=== PATIENT | female | born 1940 | race Caucasian/White ===

== ENCOUNTER 2020-02-01 11:26 | Outpatient (RCR) | payer SELFPAY | END 2020-02-01 23:59 | disposition home or self-care (01) | LOC: ANHAUDIO 11:26 | PROVIDERS: PCP Internal Medicine; Visit Provider Internal Medicine | DX: Z46.1 Encounter for fitting and adjustment of hearing aid (principal) | CPT/HCPCS: 99199 ==

== ENCOUNTER 2020-08-09 09:27 | Outpatient (CLI) | payer MEDICARE, OTHER, SELFPAY ==
--- NOTE | ~2020-08-09 | MM_ITS ---
EXAMINATION: MM screening jesse BI w olayinka HISTORY: Screening mammogram TECHNIQUE: Craniocaudal and mediolateral oblique 3-D tomosynthesis images were obtained and synthetic 2-D images were generated. CAD analysis was submitted and interpreted. COMPARISON: 06/22/2019, 06/17/2018, 06/10/2017 bilateral digital screening mammogram examinations BREAST PARENCHYMAL COMPOSITION: There are scattered areas of fibroglandular density. FINDINGS: Clips are again noted in the mid to upper outer left breast. 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 There is no evidence of suspicious mass, calcification, or architectural distortion to suggest malig aura in either breast. There has been no suspicious interval change. IMPRESSION: 1. No mammographic evidence of malignancy. 2. Recommend routine screening mammography in one year. BI-RADS Category 2: Benign finding(s). Reviewed, dictated and finalized at location A. NESS SYSTEM CONSULTANT
== END 2020-08-09 09:28 | disposition home or self-care (01) ==
PROVIDERS: PCP Internal Medicine; Visit Provider Obstetrics & Gynecology
DX: Z12.31 Encounter for screening mammogram for malignant neoplasm of breast (principal)
CPT/HCPCS: 77063; 77067

== ENCOUNTER 2020-11-07 10:24 | Outpatient (RCR) | payer SELFPAY | END 2020-11-07 23:59 | disposition home or self-care (01) | LOC: ANHAUDIO 10:24 | PROVIDERS: PCP Internal Medicine; Referring Provider Internal Medicine; Visit Provider Internal Medicine | DX: Z46.1 Encounter for fitting and adjustment of hearing aid (principal) | CPT/HCPCS: 99199 ==

== ENCOUNTER 2021-09-02 09:19 | Outpatient (CLI) | payer MEDICARE, OTHER, SELFPAY ==
--- NOTE | ~2021-09-02 | MM_ITS ---
EXAMINATION: MM screening [facility] BI w olayinka HISTORY: Screening mammogram TECHNIQUE: Craniocaudal and mediolateral oblique 3-D tomosynthesis images were obtained and synthetic 2-D images were generated. CAD analysis was submitted and interpreted. COMPARISON: 08/09/2020 06/22/2019, 06/17/2018 BREAST PARENCHYMAL COMPOSITION: There are scattered areas of fibroglandular density. FINDINGS: There is no evidence of suspicious mass, calcification, or architectural distortion to sugg est malignancy in either breast. There has been no suspicious interval change. IMPRESSION: 1. No mammographic evidence of malignancy. 2. Recommend routine screening mammography while the patient remains in good health. BI-RADS Category 1: Negative Reviewed, dictated and finalized at location A. PHERE ADMINISTRATOR IMPRESSION: 1. No mammographic evidence of malignancy. 2. Recommend routine screening mammography while the patient remains in good he alth. BI-RADS Category 1: Negative
== END 2021-09-02 09:20 | disposition home or self-care (01) ==
LOC: ANHIMG 09:22
PROVIDERS: PCP Internal Medicine; Visit Provider Obstetrics & Gynecology
DX: Z12.31 Encounter for screening mammogram for malignant neoplasm of breast (principal)
CPT/HCPCS: 77063; 77067

== ENCOUNTER 2022-12-15 10:12 | Outpatient (CLI) | payer MEDICARE, OTHER, SELFPAY ==
--- NOTE | ~2022-12-15 | MM_ITS ---
EXAMINATION: MM screening jesse BI w olayinka HISTORY: Screening mammogram TECHNIQUE: Craniocaudal and mediolateral oblique 3-D tomosynthesis images were obtained and synthetic 2-D images were generated. CAD analysis was submitted and interpreted. COMPARISON: 09/02/2021, 08/09/2020, 06/22/2019 bilateral screening mammogram examinations BREAST PARENCHYMAL COMPOSITION: There are scattered areas of fibroglandular density. FINDINGS: Occasional bilateral benign calcifications, including benign appearing probable partially c alcified right mid medial anterior fibroadenoma. There is no evidence of suspicious mass, calcificati on, or architectural distortion to suggest malignancy in either breast. There has been no suspicious interval change. IMPRESSION: 1. No mammographic evidence of malignancy. 2. Recommend routine screening mammography in one year. BI-RADS Category 2: Benign finding(s). Reviewed, dictated and finalized at location A.
== END 2022-12-15 10:13 | disposition home or self-care (01) ==
PROVIDERS: PCP Internal Medicine; Visit Provider Obstetrics & Gynecology
DX: Z12.31 Encounter for screening mammogram for malignant neoplasm of breast (principal)
CPT/HCPCS: 77063; 77067

== ENCOUNTER 2025-04-18 08:33 | Outpatient (CLI) | payer MEDICARE, OTHER, SELFPAY ==
--- NOTE | ~2025-04-18 | MMUS_ITS ---
EXAMINATION: MM diagnostic jesse BI w olayinka, US breast LT limited INDICATION: 85-year old female; evaluation of palpable lump in the left breast. Prior history of bila teral benign breast biopsy. Family history of breast cancer in sister. COMPARISON: 12/15/2022 through 06/02/2016 TECHNIQUE: Digital breast tomosynthesis True lateral and spot compression of the LEFT breast were obt ained with computer-aided detection to assist in interpretation of the study. Targeted ultrasound of the palpable area in the left breast was completed. MAMMOGRAM FINDINGS: There are scattered areas of fibroglandular density. There is a superficial focal asymmetry adjacent to a focal skin thickening in the superior lateral an d anterior depth within the left breast which correlates to the general area of palpable lump. There are 2 metallic clips with adjacent area of architectural distortion in the upper outer left breast. T hese areas are stable dating back to mammogram of 06/02/2016. No other suspicious masses, calcifications or architectural distortion is seen in the rest of the ricardo ast. LEFT BREAST ULTRASOUND FINDINGS: Targeted evaluation of the superior region of the left breast was completed. At 12:00, 1 cm from the nipple corresponding to the palpable lump area identified by the patient, the re is an irregular shaped hypoechoic area with increased vascularity that measure 2.3 x 1.7 cm. In ad dition, at 11:00, 3 cm from the nipple there is a 0.2 x 0.3 x 0.2 cm hypoechoic mass with ill-defined margins. Evaluation of the left axilla show lymph nodes with prominent fatty hilum which are probably reactive or benign. IMPRESSION: 1. Suspicious left breast mass at 12:00 location which correlates to the palpable lump. Recommend bi opsy. 2. Additional suspicious 0.3 cm hypoechoic mass at 11:00. Biopsy is recommended. RECOMMENDATION: Ultrasound-guided core biopsy of left breast mass at 12:00 and at 11:00. BI-RADS 4, SUSPICIOUS Reviewed, dictated and finalized at location B. IMPRESSION: 1. Suspicious left breast mass at 12:00 location which correlates to the palpa ble lump. Recommend biopsy. 2. Additional suspicious 0.3 cm hypoechoic mass at 11:00. Biopsy is recommende d. RECOMMENDATION: Ultrasound-guided core biopsy of left breast mass at 12:00 and at 11:00. BI-RADS 4, SUSPICIOUS
== END 2025-04-18 08:34 | disposition home or self-care (01) ==
LOC: ANHIMG 08:35
PROVIDERS: PCP Internal Medicine; Visit Provider Obstetrics & Gynecology
DX: N63.21 Unspecified lump in the left breast, upper outer quadrant (principal); R92.8 Other abnormal and inconclusive findings on diagnostic imaging of breast
CPT/HCPCS: 76642; 77062; 77066; G0279

== ENCOUNTER 2025-05-07 07:40 | Outpatient (CLI) | payer MEDICARE, OTHER, SELFPAY ==
--- NOTE | ~2025-05-07 | MMUS_ITS ---
PROCEDURE: MM post biopsy diagnostic LT, US breast bx add lesion LT, US breast biopsy LT w image CLINICAL HISTORY: 85-year-old female with suspicious left breast mass at 12:00 and additional suspicious hypoechoic mass at 11:00 locations recommended for biopsy. She presents for ultrasound-guided core needle biopsy of both lesions. COMPARISON: 04/18/2025 Following informed consent including risks, benefits, and possible complications, the patient was brought to the ultrasound suite. A time-out procedure was performed. A preliminary ultrasound of the left breast was performed, redemonstrating hypoechoic mass at 12:00, 1 cm from the nipple and additional hypoechoic mass at 11:00, 3 cm from the nipple. The patient was prepped and draped in the usual sterile fashion. 1% lidocaine was instilled into the subcutaneous tissues. 1% lidocaine without epinephrine was injected into the deep tissues around the lesion. Approximately 10cc lidocaine was administered. A small skin ghislaine was made. 4 core samples were obtained from the lesion at 12:00 through a Lateral approach with a 14-gauge biopsy needle. A post biopsy butterfly, hydromark marker was placed at the biopsy site. The patient was prepped and draped in the usual sterile fashion. 1% lidocaine was instilled into the subcutaneous tissues. 1% lidocaine without epinephrine was injected into the deep tissues around the lesion. Approximately 10cc lidocaine was administered. A small skin ghislaine was made. 4 core samples were obtained from the palpable lesion at 11:00 through a Lateral approach with a 14- gauge biopsy needle. A post biopsy coil, hydromark marker was placed at the biopsy site. Postprocedural mammogram of the left breast in craniocaudal and mediolateral projections reveal all 2 post biopsy metal markers in good position. The patient tolerated the procedure well and was without immediate postprocedural complications. IMPRESSION: Successful ultrasound guided biopsy of 2 lesions. Both post biopsy metal markers placed at the biopsy sites are in good position, which is seen on postprocedural mammogram. The patient tolerated the procedure well without immediate postprocedure complications. The patient was given postprocedural instructions and sent home in stable condition. Reviewed, dictated and finalized at location B. IMPRESSION: Successful ultrasound guided biopsy of 2 lesions. Both post biopsy metal markers placed at the biopsy sites are in good position, which is seen on postprocedural mammogram. The patient tolerated the procedure well without immediate postprocedure compli cations. The patient was given postprocedural instructions and sent home in sta ble condition. IMPRESSION: Successful ultrasound guided biopsy of 2 lesions. Both post biopsy metal markers placed at the biopsy sites are in good position, which is seen on postprocedural mammogram. The patient tolerated the procedure well without immediate postprocedure compli cations. The patient was given postprocedural instructions and sent home in sta ble condition.
--- NOTE | 2025-05-07 09:14 | S_PTH ---
PATIENT: Cara Nicholson LOC: ANHIMG U#:[id number] AGE/SX: 85/F ROOM: RE05/07/[address]: Lissa Forde MD : 1940 BED: DIS: 05/07/2025 SPEC #: [id number] RECD: 05/07/25 09:31 STATUS: DAVID REHeather #: [id number] [place]: 05/07/25 09:[address]: Lissa Forde DEPT: [facility] Surgical RECD BY: Marlee Mon ENTERED: 05/07/25 09:31 SP TYPE: Surgical OTHR DR: Tato NortonMD Tissues: A - Breast Biopsy B - Breast Biopsy Procedures: Hematoxylin and Eosin Stain Gross and Microscopic Level 4 ER-60 HI-60 MIB-60 HER 2-60 Calretinin DINAH-3
== END 2025-05-07 07:41 | disposition home or self-care (01) ==
PROVIDERS: PCP Internal Medicine; Visit Provider Surgery
DX: N63.25 Unspecified lump in the left breast, overlapping quadrants (principal); N63.22 Unspecified lump in the left breast, upper inner quadrant
CPT/HCPCS: 19083; 19084; 77065; 88305; 88342; 88360; A4648

== ENCOUNTER 2025-05-15 09:40 | Outpatient (CLI) | payer MEDICARE, OTHER, SELFPAY ==
--- NOTE | 2025-05-15 10:00 | ECG_ITS ---
Test Date: 2025-05-15 10:09:28 Measurements Intervals [place] Rate: 63 P: 54 LA: 161 QRS: -3 QRSD: 84 T: -11 QT: 386 QTc: 396 Interpretive Statements SINUS RHYTHM NONSPECIFIC ST-T WAVE CHANGES No previous ECG available for comparison Electronically Signed On 05-15-2025 10:44:55 CDT by Eddy Mckeon M.D.
--- OUTSIDE RECORDS SUMMARY | 2025-05-15 10:00 | XMS_ITS | Encounter Summary ---
Author Organization [facility] Address [facility] [place] [address] Care Team Providers Care Truck Washer Name Role Phone Misael Boyce MD Unavailable [phone] Arely Norton MD Primary Care Provider [phone] Reason for Visit * Reason Onset Date Comments Results 05/11/2025 Encounter Details Date Type Department Care Team (Late st Contact Info) Description 05/11/2025 Telephone [facility] Family & Internal Medicine [facility] [address] [place] [address] [place] [address] [facility] [place] [address] Results Social History Tobacco Use Types Packs/Day Years Used Date Smoking Tobacco: Never Smokeless Tobacco: Never Alcohol Use Standard Drinks/Week Comments No 0 (1 standard drink = 0.6 oz pur e alcohol) AUDIT-C Answer Date Recorded Frequency of Alcohol Consumption Never 12/16/2018 Average Number of Drinks Not on file 019 Frequency of Binge Drinking Not on file 01/2019 PHQ-2 Answer Date Recorded Patient Health Questionnaire-2 Score 0 01/15/2025 Education Answer Date Recorded What is the highest level of school you have completed or the highest degree you have received? High school graduate 12/16/2018 Comments No Sex and Gender Information Value Date Recorded Sex Assigned at Female 12/28/2018 2:17 PM CDT Legal Sex Female 8:24 PM CDT Gender Identity Female 12/28/2018 2:17 PM CDT Sexual Orientation Straight 12/28/2018 2: 17 PM CDT Occupation Industry Job Start Date Job End Date Not on file Not on file Not on file Not on file documented as of this encounter Progress Notes * Debbie Castro - 05/11/2025 3:10 PM CDT Sent to wrong provider, Saw Dr. Vidal. * Debbie Castro - 05/11/2025 3:05 PM CDT Nanette from Surgery Dept, [facility] calling. Said she just called Cara to do her surgery interview and is needing the following information if possible. Cara mentioned she just had labs completed today. Recent lab results EKG - Cara mentioned she had one done recently at [facility], Nanette was not sure who ordered. Surgery scheduled for 05/16/2025, left Mastectomy documented in this encounter Plan of Treatment Upcoming Encounters Date Type Department Care Team (Late st Contact Info) Description 07/18/2025 9:40 AM SPIDER ASSEMBLER Office Visit [facility] Family & Internal Medicine - [place] [address] [place] [address] [place] [address] [facility] [place] [address] 07/30/2025 9:30 AM SPIDER ASSEMBLER Office Visit [facility] Audiology [address] [place] [address] Yissel Petty AUD [address] [place], [place] [address] 04/19/2026 11:15 AM CDT [facility] [address] [place] [address] Misael Boyce MD [facility]. [address] [place] [address] documented as of this encounter Visit Diagnoses Not on filedocumented in this encounter Additional Health Concerns Assessment Noted Time PHQ-9 Depression Total Score: 2 01/12/20 23 7:50 AM CDT documented as of this encounter Care Teams Truck Washer Relationship Specialty [place] [address] [facility]. [address] [place] [address] PCP - General FAMILY PRACTICE 10/30/22 Misael Boyce MD [facility]. [address] [place] [address] Susan Agricultural Extension Educator INTERVENTIONAL CARDIOLOGY 12/20/18 documented as of this encounter
--- OUTSIDE RECORDS SUMMARY | 2025-05-15 10:00 | XMS_ITS | Encounter Summary ---
Author Organization [facility] Address [address] [place] [address] Care Team Providers Care Cost Engineer Name Role Phone Tomas Canada MD Primary Care Provider U Misael Wilson MD Unavailable [phone] Arely Norton MD Primary Care Provider [phone] Encounter Details Date Type Department Care Team (Late st Contact Info) Description 02/16/2019 DIRECTOR OF DIGITAL TECHNOLOGY ONLY [facility] Medical [facility] - [address] [place] [address] Scanned, Documents Social History Tobacco Use Types Packs/Day Years Used Date Smoking Tobacco: Never Smokeless Tobacco: Never Alcohol Use Standard Drinks/Week Comments No 0 (1 standard drink = 0.6 oz pur e alcohol) AUDIT-C Answer Date Recorded Frequency of Alcohol Consumption Never 12/16/2018 Average Number of Drinks Not on file 019 Frequency of Binge Drinking Not on file 01/2019 Education Answer Date Recorded What is the [...] as of this encounter Progress Notes * Zscanned, Documents - 02/16/2019 12:00 AM CDT CARA DE JESUS MD: ACCT: [id number] ADMIT/SERVICE DATE: 02/16/19 DISCHARGE DATE: : 1940 PT TYPE: REG RCR SEX: F ORD SITE: [facility] CHART DOCUMENT 02/16/2019 UMAIR DIAZ NP RE: CARA DE JESUS : 1940 DIAGNOSIS: BACK PAIN STATUS POST FALL DEAR MS. DIAZ: THIS PATIENT HAS ATTENDED SEVEN PHYSICAL THERAPY SESSIONS FROM 01/24/19 THROUGH 02/16/19. THIS PATIENT IS PLEASED WITH HER PROGRESS. SHE TYPICALLY DOES NOT EXPERIENCE REMARKABLE PAIN THROUGHOUT THE DAY UNTIL EARLY EVENING. HER SYMPTOMS ARE MANAGEABLE. SHE DID ATTEMPT TO RESUME A WALKING PROGRAM YESTERDAY AND DID EXPERIENCE SOME LOW BACK SORENESS. THE PATIENT STATES SHE FEELS COMFORTABLE CONTINUING WITH A HOME EXERCISE PROGRAM ONLY AFTER HER VISIT TODAY. SHE PERFORMS ALL EXERCISES IN CLINIC WITHOUT REMARKABLE PAIN OR LIMITATION. SHE AMBULATES WITHOUT USE OF AN ASSISTIVE DEVICE AND DEMONSTRATES NO LOSS OF BALANCE OR INSTABILITY. SHE DOES NEED FREQUENT VERBAL AND TACTILE CUES TO MAINTAIN A NEUTRAL SPINE POSITION DURING HER EXERCISES, ALTHOUGH HER POSTURAL AWARENESS IS IMPROVING. SHE NOTES LITTLE DIFFICULTY WITH TRANSITIONAL MOVEMENTS, INCLUDING GETTING IN AND OUT OF HER BED. SHE CONTINUES TO PROGRESS TOWARDS GOALS AND I FEEL ALL GOALS WILL BE MET WITH CONTINUED HOME EXERCISE PROGRAM. I SUGGEST THIS PATIENT TO RE-EVALUATE HER SYMPTOMS IN THE NEXT ONE TO TWO WEEKS AND TO RETURN TO PHYSICAL THERAPY IF SHE FEELS THAT HER PROGRESS DOES NOT CONTINUE WITH HER HOME PROGRAM. PLEASE CONTACT [facility] DEPARTMENT OF OUTPATIENT PHYSICAL THERAPY WITH QUESTIONS OR CONCERNS REGARDING THE CARE OF THIS PATIENT. NO FURTHER VISITS ARE PLANNED AT THIS TIME. ELECTRONICALLY SIGNED BY ASHLEY SCHROEDER P.T. 02/20/2019 12:55 P DM/HH 02/16/2019 02/17/2019 01:11 P JOB NO: [id number] DOC NO: [id number] CC: documented in this encounter Plan of Treatment Upcoming Encounters Date Type Department Care Team (Late st Contact Info) Description 07/18/2025 9:40 AM DISABILITY ADVOCATE Office Visit [facility] Medical Group Family & Internal Medicine - [place] [address] [place] [address] [place] [address] [facility] [place] [address] 07/30/2025 9:30 AM DISABILITY ADVOCATE Office Visit [facility] Audiology [address] [place] [address] Yissel Petty, AUD [address] [place], [place] [address] 04/19/2026 11:15 AM CDT Office Visit [facility] [address] [place] [id number] Misael Boyce MD [facility]. [address] [place] [address] documented as of this encounter Visit Diagnoses Not on filedocumented in this encounter Additional Health Concerns Infection Onset Date Last Indicated Resolved Time COVID-19 Rule Out 03/24/2023 03/24/2023 03/24/2023 2:10 PM CDT COVID-19 Rule Out 03/24/2023 03/24/2023 03/24/2023 2:48 PM CDT documented as of this encounter Care Teams Cost Engineer Relationship Specialty Start Date End Date Tomas Canada MD PCP - General INTERNAL MEDICINE 12/16/18 10/29/22 [place] [address] [facility]. [address] [place] [address] PCP - General FAMILY PRACTICE 10/30/22 Misael Boyce MD [facility] [address] [place] [address] Decker Event Management Consultant INTERVENTIONAL CARDIOLOGY 12/20/18 documented as of this encounter
--- OUTSIDE RECORDS SUMMARY | 2025-05-15 10:00 | XMS_ITS | Clinical Summary ---
Author Organization [facility] Address [address] [place] [address] Care Team Providers Care Technical Professional Name Role Phone Misael Boyce MD Unavailable [phone] Arely Norton MD Primary Care Provider [phone] Allergies Active Allergy Reactions Criticality Noted Date Comments Diclofenac Sodium Dizziness,Other (see comment) 10/19/2023 Light headed Medications aspirin 81 MG tablet Take 1 tablet (81 mg total) by mouth daily. 12/24/19 19 Active Cholecalciferol (VITAMIN D-3) 25 MCG (1000 UT) Cap Ac tive CALCIUM OR Take by mouth daily. Active magnesium oxide (MAG-OX) 250 MG tablet Take 1 tablet (250 mg total) by mouth daily. Active ezetimibe (ZETIA) 10 MG tablet Take 1 tablet (10 mg total) by mouth daily. 90 tablet 3 07/28/20 24 Active PREVIDENT 5000 DRY MOUTH 1.1 % Gel 11/18/19 25 Active amLODIPine (NORVASC) 5 MG tabletIndications: Essential hypertension Take 1 tablet (5 mg total) by mouth daily. 90 tablet 3 01/16/20 25 Active levothyroxine (SYNTHROID) 25 MCG tabletIndications: Acquired hypothyroidism Take half tablet once daily with levothyroxine 50 mcg for a total of 62.5 mcg daily 45 tablet 3 01/16/20 25 Active levothyroxine (SYNTHROID) 50 MCG tabletIndications: Acquired hypothyroidism Take 1 tablet (50 mcg total) by mouth every morning. 90 tablet 3 01/16/20 25 Active metoprolol succinate ER (TOPROL-XL) 50 MG 24 hr tabletIndications: Essential hypertension Take 1 tablet (50 mg total) by mouth daily. 90 tablet 3 01/16/20 25 Active losartan (COZAAR) 100 MG tabletIndications: Essential hypertension Take 1 tablet (100 mg total) by mouth daily. 90 tablet 02/14/20 25 Active chlorthalidone (HYGROTEN) 25 MG tabletIndications: Essential hypertension Take 1 tablet (25 mg total) by mouth daily. 90 tablet 02/14/20 25 Active Active Problems Problem Noted Date Diagnosed Date Imbalance 11/06/2024 Impacted cerumen of right ear 09/26/2024 Bilateral shoulder pain 03/31/2023 Right hip pain 03/31/2023 Primary osteoarthritis of right knee 08/28/2021 Assessment & Plan (03/21/2024 10:14 AM CDT): We discussed the risks, benefits, and alternatives. The only thing proven to slow the progression of osteoarthritis is weight loss. Every pound lost relieves 4 to 6 pounds of stress across the knee. We discussed unloading braces. Formal physical therapy to help with flexibility, mobility, and strength. We discussed TENS units. Nonsteroidal anti-inflammatories as well as Tylenol and pain medication and their side effects. We discussed steroid versus Visco supplement injection. We discussed eventual total knee arthroplasty. Synvisc was injected, tolerated it well. We'll see her back as needed. Assessment & Plan (12/17/2021 8:32 PM CDT): We discussed the risks, benefits and alternatives. The only thing proven to slow the progression of osteoarthritis is weight loss. Every pound lost relieves 4 to 6 pounds of stress across the knee. We discussed unloading braces. Formal physical therapy to help with flexibility, mobility and strength. We discussed TENS units. Nonsteroidal anti-inflammatories as well as Tylenol and pain medication and their side effects. We discussed steroid versus Visco supplement injection. We discussed eventual total knee arthroplasty. Follow-up anytime after March 17 for possible repeat viscosupplementation Preapproval for viscosupplementation Assessment & Plan (09/18/2021 12:51 PM JUNIOR GRAPHIC DESIGNER): We discussed the risks, benefits and alternatives. The only thing proven to slow the progression of osteoarthritis is weight loss. Every pound lost relieves 4 to 6 pounds of stress across the knee. We discussed unloading braces. Formal physical therapy to help with flexibility, mobility and strength. We discussed TENS units. Nonsteroidal anti-inflammatories as well as Tylenol and pain medication and their side effects. We discussed steroid versus Visco supplement injection. We discussed eventual total knee arthroplasty. Patient wants to avoid steroids Synvisc injected today Follow-up in 3 months Assessment & Plan (08/28/2021 3:58 PM JUNIOR GRAPHIC DESIGNER): We discussed the risks, benefits and alternatives. The only thing proven to slow the progression of osteoarthritis is weight loss. Every pound lost relieves 4 to 6 pounds of stress across the knee. We discussed unloading braces. Formal physical therapy to help with flexibility, mobility and strength. We discussed TENS units. Nonsteroidal anti-inflammatories as well as Tylenol and pain medication and their side effects. We discussed steroid versus Visco supplement injection. We discussed eventual total knee arthroplasty. Begin meloxicam 7.5 mg once daily. Consider steroid and viscosupplementation in the future Physician directed exercises given Atherosclerosis 04/04/2021 Assessment & Plan (04/27/2025 9:53 AM CDT): She denies any recent anginal symptoms. Continue medical management with aspirin, Zetia, metoprolol. Assessment & Plan (04/10/2022 9:31 AM CDT): She is currently asymptomatic in regards to cardiovascular disease including angina and claudication Continue medical management of atherosclerosis with aspirin, Zetia, hydrochlorothiazide, losartan and metoprolol. Assessment & Plan (08/28/2021 3:59 PM JUNIOR GRAPHIC DESIGNER): Calcification noted posterior to the knee. No evidence of claudication at this time Assessment & Plan (04/04/2021 9:33 AM CDT): She is currently asymptomatic in regards to cardiovascular disease including angina and claudication.Including aspirin, Continue medical management as it may, hydrochlorothiazide, losartan and metoprolol. Chronic pain of right knee 02/03/2021 Vertigo 12/11/2020 Nocturnal leg cramps 09/20/2019 BMI 28.0-28.9,adult 03/20/2019 Assessment & Plan (12/17/2021 8:32 PM CDT): We discussed the adverse effects of weight on osteoarthritis of the knee. For every 1 pound loss, 4 to 6 pounds of stress is relieved from the knee. We discussed low carbohydrate diet to help with weight loss. 80% of weight loss is through diet. Assessment & Plan (09/18/2021 12:52 PM JUNIOR GRAPHIC DESIGNER): We discussed the adverse effects of weight on osteoarthritis of the knee. For every 1 pound loss, 4 to 6 pounds of stress is relieved from the knee. We discussed low carbohydrate diet to help with weight loss. 80% of weight loss is through diet. Assessment & Plan (08/28/2021 3:59 PM JUNIOR GRAPHIC DESIGNER): We discussed the adverse effects of weight on osteoarthritis of the knee. For every 1 pound loss, 4 to 6 pounds of stress is relieved from the knee. We discussed low carbohydrate diet to help with weight loss. 80% of weight loss is through diet. Mixed hyperlipidemia 03/20/2019 Assessment & Plan (04/27/2025 9:54 AM CDT): Recent lipid panel is controlled. Continue Zetia. Patient is intolerant to statins. Assessment & Plan (04/10/2022 9:33 AM CDT): Her lipids were well controlled as of March 2022. Continue Zetia. She is not tolerant of statins. Assessment & Plan (04/04/2021 9:34 AM CDT): Her lipids were well controlled as of June last year. She will require a repeat lipid panel this year. I have asked her to get this with primary care. Continue Zetia. She is not tolerant of statins. Acquired hypothyroidism 12/16/2018 Essential hypertension 12/16/2018 Assessment & Plan (04/27/2025 9:54 AM CDT): Blood pressure is elevated in office although patient reports to being stressed this morning. States she monitors her blood pressure every day with an average reading of 124/70 mmHg. Continue with home blood pressure monitoring. Continue losartan, metoprolol, amlodipine. Assessment & Plan (04/10/2022 9:32 AM CDT): Her blood pressure has not been well controlled at her recent visits with physicians. I encouraged home blood pressure monitoring. Continue amlodipine, hydrochlorothiazide, losartan and metoprolol. Assessment & Plan (04/04/2021 9:33 AM CDT): Her blood pressure is well controlled. Continue hydrochlorothiazide, losartan and metoprolol. Atrophy of vulva 05/04/2013 Nocturia 05/04/2013 Prolapse of vaginal vault after hysterectomy Urge incontinence 05/04/2013 Resolved Problems Problem Noted Date Diagnosed Date Resolved Date Labyrinthitis of both ears 12/11/2020 1 10/05/2020 Paronychia of finger of right hand 07/11/2020 12/23/2020 Need for prophylactic vaccin ation against Streptococcus pneumoniae (pneumococcus) 07/11/2020 07/15/2020 Chest pain, unspecified type 12/16/2018 03/20/2019 Encounters Date Type Department Care Team Description 05/11/2025 4:00 PM CDT - 05/11/2025 11:59 PM CDT Hospital Encounter [facility] [address] [place] [address] Luis Samaniego MD Discharge Disposition: Home or Self Care (Routine Discharge) 05/11/2025 2:50 PM CDT Laboratory Only [facility] [address] [place] [phone] Luis Samaniego MD 05/11/2025 1:40 PM CDT Office Visit [facility] [address] [phone] Luis Samaniego MD Surgical Clearance (Surgical pre op mastectomy 05/16/[address] Forde @ [facility]) 05/11/2025 Results Follow-Up [facility] Internal [address] [address] Luis Samaniego MD COMPREHENSIVE METABOLIC PANEL, CBC W/DIFF AUTOMATED 05/11/[address] [address] Arely Norton MD Results 05/11/2025 Travel 05/10/[address] [address] Arely Norton MD Surgical Clearance 05/09/2025 2:00 PM CDT Office Visit [facility] [address] [place] [address] Yissel Petty AUD Hearing Aid Check 05/09/2025 Travel 04/27/2025 9:15 AM CDT Office Visit [facility] [address] Misael Boyce MD Lanter, Megan N, PA Follow Up (Atherosclerosis); Hypertension; Lipids 04/27/2025 Travel 04/25/2025 Scan [facility] SR[facility] Scanned, [facility] 02/22/[address] [address] Arely Norton MD Mammography Order from Last 3 Months Immunizations Immunization Administration Dates Next Due Flucelvax 2 YRS+ (Multi-Dose Vial) 06/17/2018 Fluzone High Dose (IIV, triv alent, 0.5mL) 06/13/2024,06/13/2020,06/15/2019 Fluzone High Dose - >Age 65 (Prefilled Syringe) 07/14/2023,06/24/2022,06/09/2021,2019,06/15/2019 Influenza (Generic) 06/22/2018 Influenza Adult (Generic) 06/22/2018 AquaGenesis (DAVON & DAVON) COVID-19 AD26 VACCINE 0.5 ML IM SUSP 11/18/2020 PFIZER COVID-19 (12+) MRNA, LNP-S, PF, SUNSHINE-SUCROSE, 30 MCG/0.3 ML (COMIRNATY) 06/27/2024 PFIZER COVID-19 (SERRANO CAP), MRNA, LNP-S, PF, 30 MCG/0.3 ML SUNSHINE-SUCROSE, IM 10/23/2021 Pneumococcal (Pneumovax 23) 08/14/2003 Pneumococcal (Prevnar 13) 07/11/2020 Td 08/14/2003 Td (Generic) 08/14/2003 Td, Adsorbed, Preservative F ree, Adult Use, Lf Unspecified 08/14/2003 Tdap (Adacel) 06/14/2014 Tdap (Generic) 06/14/2014 Family History Medical History Relation Comments Heart Brother 1 Lung Cancer Brother 1 Heart Brother 2 Prostate Cancer Brother 2 Prostate Cancer Father Hypertension Mother Stroke Mother Heart Attack Sister 1 Lung Cancer Sister 1 Breast Cancer Neg Hx Relation Status Comments Brother 1 (Age 55) Brother 2 Alive Father (Age 76) Mother (Age 73) Sister 1 (Age 70) Sister 2 (Age 81) Social History Tobacco Use Types Packs/Day Years Used Date Smoking Tobacco: Never Smokeless Tobacco: Never Tobacco Cessation:Counseling Given: No Alcohol Use Standard Drinks/Week Comments No 0 [...] file Not on file Not on file Last Filed Vital Signs Vital Sign Reading Time Taken Comments Blood Pressure 102/69 05/11/2025 2:04 PM CDT Pulse 72 05/11/2025 2:04 PM CDT Temperature 36.3 C (97.3 F) 05/11/2025 2:04 PM CDT Respiratory Rate 18 05/11/2025 2:04 PM CDT Oxygen Saturation 97% 05/11/2025 2:04 PM CDT Inhaled Oxygen Concentration - - Weight 67.6 kg (149 lb) 05/11/2025 2:04 PM CDT Height 157.5 cm (5' 2) 05/11/2025 2:04 PM CDT Body Mass Index 27.25 05/11/2025 2:04 PM CDT Plan of Treatment Upcoming Encounters Date Type Department Care Team (Late st Contact Info) Description 07/18/2025 9:40 AM JUNIOR GRAPHIC DESIGNER Office Visit [facility] Internal Medicine [facility] [address] [place] [address] A[place] Norton [place] [id number] [place] [address]. [address] [place] [address] 07/30/2025 9:30 AM JUNIOR GRAPHIC DESIGNER Office Visit [facility] [address] [place], [place] [phone] Yissel Petty, LUIS [address] [place] [address] 04/19/2026 11:15 AM CDT [facility] [address] [place] [address] Misael Boyce MD [facility]. [place] [address] [place] [address] Health Maintenance Due Date Last Done Comments Depression Screening PHQ-9 1950 Zoster Vaccines (1 of 2) 01/27/1988 Annual Medicare Wellness Visit 2003 RSV Immunization or 60+ Years (1 - 1-dose 75+ series) 2013 DTaP, Tdap and Td Vaccines (3 - Td or Tdap) 06/14/2024 06/14/2014, 06/14/2014, 08/14/2003, Additional history exists COVID-19 Vaccine ( season) 2025 06/27/2024, 10/23/2021, 11/18/2020 ASCVD Statin 04/28/2028 Postponed from 1938 (Per Provider Recommendation) Pneumococcal Vaccine: 50+ Years Completed 07/11/2020, 08/14/2003 PHQ-2 (Physician [place]) Completed 01/15/2025 Meningococcal B Vaccine Aged Out No l onger eligible based on patient's age to complete this topic Meningococcal Vaccine Aged Out No alyx vandana eligible based on patient's age to complete this topic RSV Immunizations Under 20 Months Aged Out No longer eligible based on patient's age to complete this topic Procedures Procedure Name Priority Date/Time Associated Diagnosis Comments COLLECTION VENOUS BLOOD VENIPUNCTURE Routine 05/11/2025 2:53 PM CDT Pre-operative clearance CBC W/DIFF AUTOMATED Routine 05/11/2025 2:48 PM CDT Pre-operative clearance COMPREHENSIVE METABOLIC PANEL Routine 05/11/2025 2:48 PM CDT Pre-operative clearance from Last 3 Months Results * (ABNORMAL) COMPREHENSIVE METABOLIC PANEL (05/11/2025 2:48 PM CDT) [facility] GLUCOSE 142(H) 70 - 99 MG/DL 05/11/2025 4:21 PM CDT [facility] BUN 26(H) 7 - 18 MG/DL 05/11/2025 4:21 PM CDT [facility] CREATININE S/P/B 0.95 0.55 - 1.02 MG/DL 05/11/2025 4:21 PM CDT [facility] SODIUM S/P/B 137 136 - 145 MMOL/L 05/11/2025 4:21 PM [facility] POTASSIUM S/P/B 4.1 3.5 - 5.1 MMOL/L 05/11/2025 4:21 PM [facility] CHLORIDE S/P/B 100 100 - 108 MMOL/L 05/11/2025 4:21 PM [facility] CO2 32.0 21 - 32 MMOL/L 05/11/2025 4:21 PM [facility] CALCIUM S/P/B 9.1 8.5 - 10.1 MG/DL 05/11/2025 4:21 PM [facility] BILIRUBIN TOTAL S/P/B 0.4 0.2 - 1.2 MG/DL 05/11/2025 4:21 PM [facility] TOTAL PROTEIN S/P/B 6.8 6.4 - 8.2 G/DL 05/11/2025 4:21 PM [facility] ALBUMIN S/P/B 3.6 3.4 - 5.0 G/DL 05/11/2025 4:21 PM [facility] AST 22 15 - 37 U/L 05/11/2025 4:21 PM [facility] ALT 25 14 - 55 U/L 05/11/2025 4:21 PM [facility] ALKALINE PHOSPHATASE S/P/B 111 50 - 136 U/L 05/11/2025 4:21 PM [facility] ANION GAP 5.0 5 - 15 MMOL/L 05/11/2025 4:21 PM [facility] BUN CREATININE RATIO 27.4(H) 6 - 26 05/11/2025 4:21 PM [facility] A/G RATIO 1.1 1.0 - 2.0 RATIO 05/11/2025 4:21 PM CDT [facility] GFR ESTIMATE 58(L) >90 ML/MIN/1.7 3 M2 05/11/2025 4:21 PM CDT [facility] Comment: NOTE: eGFR is not calculated for patients <18 years of age. This is an estimated GFR calculation using the new CKD EPI creatinine equation without race and so does not require a correction factor for race. This estimated GFR should not be used for calculating drug doses. 05/11/2025 2:48 PM CDT us Luis Samaniego MD LABORATORY Final Resul t [facility] [address] [place] [id number], * (ABNORMAL) CBC W/DIFF AUTOMATED (05/11/2025 2:48 PM CDT) WBC 9.38 4.4 - 11.0 x10'3/uL 05/11/2025 4:08 PM CDT [facility] RBC 4.15(L) 4.50 - 5.10 x10'6/uL 05/11/2025 4:08 PM CDT [facility] HGB 12.6 12.3 - 15.3 G/DL 05/11/2025 4:08 PM CDT [facility] HCT 38.2 35.9 - 44.6 % 05/11/2025 4:08 PM CDT [facility] MCV 92.0 80.0 - 96.0 FL 05/11/2025 4:08 PM CDT [facility] MCH 30.4 25.3 - 30.9 PG 05/11/2025 4:08 PM CDT [facility] MCHC 33.0 31.0 - 34.1 G/DL 05/11/2025 4:08 PM CDT [facility] RDW 13.5 12.4 - 15.1 % 05/11/2025 4:08 PM T [facility] PLT 444(H) 151 - 353 x10'3/uL 05/11/2025 4:08 PM T [facility] MPV 9.5(L) 9.6 - 12.0 FL 05/11/2025 4:08 PM CDT [facility] RBC MORPHOLOGY NORMAL 05/11/2025 4:08 PM T [facility] PLT MORPH. NORMAL 05/11/2025 4:08 PM T [facility] WBC MORPHOLOGY NORMAL 05/11/2025 4:08 PM T [facility] LYMPHOCYTES % 23.1 15.8 - 45.0 % 05/11/2025 4:08 PM T [facility] NEUTROPHILS % 65.3 42.1 - 71.9 % 05/11/2025 4:08 PM T [facility] MONOCYTES % 8.7 5.7 - 12.5 % 05/11/2025 4:08 PM T [facility] EOSINOPHILS 2.1 0.0 - 5.6 % 05/11/2025 4:08 PM T [facility] BASOPHILS 0.6 0.0 - 1.3 % 05/11/2025 4:08 PM T [facility] ABS. NEUTROPHILS 6.11(H) 1.40 - 6.00 x10'3/uL 05/11/2025 4:08 PM T [facility] IMMATURE GRANS % 0.2 0.0 - 0.5 % 05/11/2025 4:08 PM T [facility] ABS. LYMPHOCYTES 2.17 0.80 - 4.70 x10'3/uL 05/11/2025 4:08 PM CDT [facility] 05/11/2025 2:48 PM CDT Luis Samaniego MD LABORATORY Final Resul t [facility] [address] [place] [address], [place] [phone] from Last 3 Months Insurance [place] [employer] [facility] Care Teams Technical Professional Relationship Specialty [place] [address] [facility]. [address] [place] [address] PCP - General FAMILY PRACTICE 10/30/22 Misael Boyce MD [facility]. [facility] [address] [place] [address] [place] [employer] INTERVENTIONAL CARDIOLOGY 12/20/18
--- OUTSIDE RECORDS SUMMARY | 2025-05-15 10:00 | XMS_ITS | Encounter Summary ---
Author Organization [facility] Address [facility] [place] [address] Care Team Providers Care Water Meter Installer Name Role Phone Misael Boyce MD Unavailable [phone] Arely Norton MD Primary Care Provider [phone] Encounter Details Date Type Department Care Team (Latest Contact Info) Description 05/11/2025 Results Follow-Up [facility] Family & Internal Medicine - [place] [phone] [place] [phone] [place] [id number] [address] COMPREHENSIVE METABOLIC PANEL, CBC W/DIFF AUTOMATED Social History Tobacco Use Types Packs/Day Years [...] as of this encounter Progress Notes * Damaris Ferguson LPN - 05/15/2025 9:54 AM CDT Pt called I read her providers message V/U * Luis Samaniego MD - 05/11/2025 4:52 PM CDT Overall results are wnl- except elevated platelets (better than before) signed off papers for the surgery documented in this encounter Plan of Treatment Upcoming Encounters Date Type Department Care Team (Late st Contact Info) Description 07/18/2025 9:40 AM GEOSPATIAL DEVELOPER Office Visit [facility] Family & Internal Medicine - [place] [address] [place] [address] Arely Norton MD [address] [place] [address]. [address] [place] [address] 07/30/2025 9:30 AM GEOSPATIAL DEVELOPER Office Visit [facility] Audiology [address] [place] [address] Yissel Petty, AUD [address] [place] [address] 04/19/2026 11:15 AM CDT [facility] [address] [place] [address] Misael Boyce MD [facility]. [address] [id number] documented as of this encounter Visit Diagnoses Not on filedocumented in this encounter Additional Health Concerns Assessment Noted Time PHQ-9 Depression Total Score: 2 01/12/20 23 7:50 AM CDT documented as of this encounter Care Teams Water Meter Installer Relationship Specialty [place] [address] [facility] [place] [address] PCP - General FAMILY PRACTICE 10/30/22 Misael Boyce MD [facility]. [facility] [address] [place] [address] [employer] Installer INTERVENTIONAL CARDIOLOGY 12/20/18 documented as of this encounter
--- OUTSIDE RECORDS SUMMARY | 2025-05-15 10:00 | XMS_ITS | Encounter Summary ---
Author Organization [facility] Address [facility] [place] [address] Care Team Providers Care Senior Accounts Payable Clerk Name Role Phone Misael Boyce MD Unavailable [phone] Arely Norton MD Primary Care Provider [phone] Reason for Visit * Reason Onset Date Comments Surgical Clearance 05/10/2025 Encounter Details Date Type Department Care Team (Late st Contact Info) Description 05/10/2025 Telephone [facility] Family & Internal Medicine [facility] [address] [place] [address] [place] [address] [facility]. [address] [place] [address] Surgical Clearance Social History Tobacco Use Types Packs/Day Years [...] encounter Progress Notes * Debbie Castro - 05/15/2025 8:53 AM CDT Soheila from Dr. Forde's office calling asking for the surgical clearance to be faxed. Surgery is scheduled for 05/16/2025 FAX # [phone] direct line * Shira Brandon RN - 05/10/2025 9:40 AM CDT Spoke to Gene(/on HIPAA) & appt made for 05/11/25 at 1340 with . * Fanny Finn - 05/10/2025 9:06 AM CDT Soheila from [facility] the office of Dr Lissa Forde called wanting to know if we receivedthe surgery clearance form. Patient is schedule for surgery on 05/16/2025 for a mastectomy. Per PSR, form was received and given to the nurse to be processed. documented in this encounter Plan of Treatment Upcoming Encounters Date Type Department Care Team (Late st Contact Info) Description 07/18/2025 9:40 AM LIFE SCIENCE TECHNICIAN Office Visit [facility] Family & Internal Medicine [facility] [address] [place] [address] Arely Norton MD [address] [place] [address]. [address] [place] [address] 07/30/2025 9:30 AM LIFE SCIENCE TECHNICIAN Office Visit [facility] [address] [place] [address] Malinda Yissel L, AUD [address] [place] [address] 04/19/2026 11:15 AM CDT Office Visit [facility] [address] [place] [address] Misael Boyce MD [facility]. [address] [address] [place] [address] documented as of this encounter Visit Diagnoses Not on filedocumented in this encounter Additional Health Concerns Assessment Noted Time PHQ-9 Depression Total Score: 2 01/12/20 7:50 AM CDT documented as of this encounter Care Teams Senior Accounts Payable Clerk Relationship Specialty [place] [address] [address] [place] [address] PCP - General FAMILY PRACTICE 10/30/22 Misael Boyce MD [facility]. [place] [address] [place] [address] Susan Vehicle Modification Technician INTERVENTIONAL CARDIOLOGY 12/20/18 documented as of this encounter
== END 2025-05-15 09:41 | disposition home or self-care (01) ==
PROVIDERS: PCP Family Medicine; Visit Provider Surgery
DX: C50.912 Malignant neoplasm of unspecified site of left female breast (principal); I10 Essential (primary) hypertension; Z01.818 Encounter for other preprocedural examination
CPT/HCPCS: 36415; 86850; 86900; 86901; 93005

== ENCOUNTER 2025-05-16 01:18 | Day surgery (SDC) | payer MEDICARE, OTHER, SELFPAY ==
[2025-05-11 15:18] VITALS: BMI 29.2
--- NOTE | 2025-05-11 15:50 | PC.NURSE ---
Report to the Outpatient Waiting Room, entrance under the green pavilion located off [facility], at time ___8:30AM__ on date __05/16/25___. Planned Procedure Time: ___10:30AM___.? Time changes happen often and if your time is changed the preop area will call you the afternoon before. - You and your visitor will be asked to self-screen and do not enter if you have any COVID symptoms. Please call surgeon if you need to reschedule. - A mask is optional within the hospital at this time. Patients may have clear liquids (water, carbonated beverages, clear teas, apple juice) until 3 hours prior to surgery (7:30am) with a maximum of 20 ounces. - No food from midnight until time of surgery and no smoking, or chewing tobacco (or any form of nicotine). No chewing gum, candy or mints. Take only the following medications with a SIP of water on the morning of surgery: ___AMLODIPINE, LEVOTHYROXINE, METOPROLOL DO NOT STOP ANY OF YOUR OTHER PRESCRIPTION MEDICATIONS PRIOR TO SURGERY EXCEPT THE FOLLOWING Hold all vitamins and supplements for 3 days per anesthesiologist. Medications to discontinue per physician ___PT HAS BEEN HOLDING ASPIRIN SINCE BIOPSY ON 05/07/[address] KAISER. Date to take last dose Please no make-up, nail maori, hairspray, perfume, deodorant, or body powder the day of surgery.? No jewelry (including any body piercings) or valuables the day of surgery, leave them at home.? Please take a shower or bath the night before, or the morning of, surgery with an antibacterial soap.? Wear comfortable, loose fitting clothing.? - Jewelry must be removed prior to entering the operating room.? Rings and piercings that are not removed may be cut off. - The hospital will not accept responsibility for valuables.? - Please leave all valuables, including medications, at home the day of surgery. If you are going home after surgery, a licensed cdl dedicated truck driver must drive you home.? - NO public transportation without another adult if you receive anesthesia. - We recommend that an adult stay with you for 24 hours following discharge. - We also recommend that you do not drive, make important decision, drink alcoholic beverages, or take any drugs that were not prescribed by your health care provider for at least 24 hours after your discharge time. Follow any additional instructions given to you from your surgeon. Telephone instructions given to ___PATIENT and asked if any additional questions and then verbalized understanding. Patient advised to call surgeon office or pre surgery nurse liaison [phone] if any additional questions.
[2025-05-16] VITALS (14 sets, daily range): BP systolic 116–154; BP diastolic 51–80; PULSE 58–72; RESP 12–20; TEMP 36.3–36.7; O2SAT 93–100
--- NOTE | ~2025-05-16 | NM_ITS ---
EXAMINATION: SENTINEL NODE INJECTION ONLY DATE: 05/16/2025 13:38 CDT INDICATION: Left breast cancer TECHNIQUE: 1 mCi Tc-99m sulfur colloid was injected along the upper outer aspect of the left nipple. The procedure was performed by Dr. Forde. IMPRESSION: 1. Status post left breast injection of Technetium 99M sulfur colloid for purpose of sentinel lymph node biopsy. Reviewed, dictated and finalized at location O. IMPRESSION: 1. Status post left breast injection of Technetium 99M sulfur colloid for purp ose of sentinel lymph node biopsy.
--- NOTE | 2025-05-16 08:41 | WPDHPUPDATE1 ---
History and Physical Update Update Date/Time: 05/16/25 08:41 - Left total mastectomy, left sentinel lymph node biopsy, injection of lymphoseek and methyelene blue for dual tracing. History and Physical has been reviewed, including an updated exam of the patient. There are NO changes in the patient's condition. Risks, benefits, and alternatives have been discussed and questions answered. Patient agrees to proceed with procedure.
[2025-05-16] MEDS: ACETAMINOPHEN 500 MG TABLET 1000 MG PO (08:55)
[2025-05-16] MEDS: LIDOCAINE/PRILOCAINE CREAM 2.5-2.5% TUBE 1 EACH TOPICAL (08:55)
[2025-05-16] MEDS: LACTATED RINGERS 1,000 ML 30 ML IV CONT ×2 (09:15→12:48)
[2025-05-16 09:48] LABS: Anion Gap 8 mmol/L (4-12); Blood Urea Nitrogen 22 mg/dL (7-17); Calcium 9.2 mg/dL (8.4-10.2); Carbon Dioxide 27 mmol/L (22-30); Chloride 100 mmol/L (98-107); Estimated CRCL calculation 39 ml/min; Estimated Glomerular Filt Rate > 60; Glucose 105 mg/dL (65-110); Potassium 3.4 mmol/L (3.4-5.0); Sodium 135 mmol/L (137-145)
--- NOTE | 2025-05-16 09:48 | WPDANESEPPF ---
Anes - Initial Pre Proc Eval Procedure: Operation Date: 05/16/25 10:30 Proposed Procedures p Left Total Mastectomy, Left [place] Lymph Node Biopsy, Injection Lymphoseek and Methylene Blue for [place] Lymph Node Mapping - Lissa Forde MD Date/Time: 05/16/25 09:48 Surgeon: Lissa Forde MD Pre Op Diagnosis: invasive lobular CA left breast Patient Data Age: 85 Gender: F Height: 1.52 m Weight: 66.7 kg Last Vital Signs Temp 36.7 C 05/16/25 08:35 Pulse 70 05/16/25 08:35 Resp 18 05/16/25 08:35 BP 148/66 H 05/16/25 08:35 Pulse Ox 100 05/16/25 08:35 O2 Del Method Room Air 05/16/25 08:35 Allergies Allergy/AdvReac Type Severity Reaction Status Date / Time No Known Allergies Allergy Verified 05/16/25 09:28 Home Medications ?Medication ?Instructions ?Recorded ?Confirmed ?Type hydrochlorothiazide 25 mg tablet 25 mg PO DAILY 08/15/19 05/16/25 History levothyroxine 88 mcg tablet 88 mcg PO DAILY 08/15/19 05/16/25 History losartan 100 mg tablet 100 mg PO DAILY 08/15/19 05/16/25 History metoprolol succinate 50 mg 50 mg PO DAILY 08/15/19 05/16/25 History tablet,extended release 24 hr ezetimibe 10 mg tablet (Zetia) 10 mg PO DAILY 04/30/20 05/16/25 History amlodipine 5 mg tablet 5 mg PO DAILY 04/17/25 05/16/25 History acetaminophen 500 mg tablet 1,000 mg PO Q6H PRN pain 05/11/25 05/11/25 History (Acetaminophen Extra Strength) aspirin 81 mg tablet,delayed 81 mg PO DAILY 05/11/25 05/16/25 History release (Adult Low Dose Aspirin) Laboratory Tests 05/16/25 09:23 Sodium Pending Potassium Pending Chloride Pending Carbon Dioxide Pending Anion Gap Pending BUN Pending Creatinine Pending Estim Creat Clear Calc Pending Estimated GFR Pending Glucose Pending Calcium Pending Patient hx anesthesia problems: none Family hx anesthesia problems: none Results Review: All pre-operative results and documents have been reviewed as part of the pre-operative evaluation. [facility] Past Medical History Medical History Hyperlipidemia Cystocele Hypertension Thyroid disease Surgical History Surgical History [place] teeth removed History of hip replacement History of cholecystectomy H/O vaginal hysterectomy Family History Family History Sibling Diabetes mellitus Family history of cardiovascular disease Acute myocardial infarction Malignant neoplasm of prostate Family history of lung cancer Hypertension Mother Hypertension Cerebrovascular accident Father Malignant neoplasm of prostate Social History Social History Smoking status: Never smoker Alcohol intake: never Substance use: never Substance use type: does not use Do You Feel Safe in your Home?: Yes Lack of Transportation: No Lack of Food: Never True Current Housing: I Have Housing Concerned About Future Housing: No Difficulty Paying Gas/Electric Bills: No Difficulty Paying for Meds: No Currently Unemployed: No Education: High School Diploma/GED Difficulty w/ Childcare or Family Care: No Living arrangements: with family Additional living arrangements comments: [facility] Occupation/Education: retired Gender identity (if verbalized by the patient): Female Sexual Orientation (if Verbalized by the Patient): Straight or Heterosexual Spiritual care concerns: No Anes - Eval Final PreProcedure Day of Procedure 05/16/25 09:48 Patient weight: overweight Heart: regular rate and rhythm Lungs: clear to auscultation Airway: Mallampati scale class III Neurological: alert and oriented Last oral intake: >/= 8 hours ASA classification: III Emergent: no Anesthetic plan: proceed Anesthesia type and monitoring: general LMA and standard monitoring Results Review: All pre-operative results and documents have been reviewed as part of the pre-operative evaluation. Informed Consent: The patient's anesthetic plan and its attendant risks and benefits were discussed with the patient/family/POA. Questions were solicited and answers provided to the satisfaction of the patient/family/POA.
[2025-05-16] MEDS: ceFAZolin 2 GM in SODIUM CHLORIDE 0.9% IV 50 ML 100 ML IVPB (10:13)
[2025-05-16] MEDS: BUPIVACAINE/EPINEPHRINE 0.5% 50 ML VIAL 30 ML INFILTRATE (10:57)
--- NOTE | 2025-05-16 11:21 | S_PTH ---
PATIENT: Cara Nicholson LOC: [facility] U#:[id number] AGE/SX: 85/F ROOM: RE05/16/[address]: Lissa Forde MD : 1940 BED: DIS: 05/17/2025 SPEC #: [id number] RECD: 05/16/25 11:48 STATUS: DAVID REHeather #: [id number] [place]: 05/16/25 11:[address]: Lissa Forde DEPT: [facility] Surgical RECD BY: Marlee Mon ENTERED: 05/16/25 11:49 SP TYPE: Surgical OTHR DR: Arely Norton, Tissues: A - [address] LN Breast B - Breast Mastectomy C - Breast Tissue Procedures: Soriano Keratin Hematoxylin and Eosin Stain Gross and Microscopic Level 4 Gross and Microscopic Level 5 HER2
--- NOTE | 2025-05-16 11:23 | SUR.OPER ---
11:24 [place] Lymph Node # 1 sent with KALIN Watson and received in pathology by Marlee @ 11:27
--- NOTE | 2025-05-16 11:56 | SUR.OPER ---
11:55 Left Breast Mastectomy sent with zac Watson and received in pathology by Iveth @ 11:58
--- NOTE | 2025-05-16 12:37 | P.OP_ITS ---
Procedure Note - Detailed Date of Procedure 05/16/25 Pre-op Diagnosis Multifocal left breast invasive lobular carcinoma Post-op Diagnosis Same Procedure Performed 1. Left total mastectomy 2. Left sentinel lymph node biopsy 3. Injection of lymphoseek and methylene blue Surgeon Lissa Forde MD Anesthesia General Description of Procedure Patient was identified in the preoperative holding area where I performed Lymphoseek injection for sentinel lymph node mapping. Patient was then brought to the operating room, she was placed supine operating table sequential compression devices were applied. General anesthesia was induced without difficulty. Left chest and left axillary areas were prepped draped in sterile fashion.? The Neoprobe was used to scan the left axilla and a small incision was made overlying this area that was incorporated into the mastectomy incision laterally. Dissection was carried down through the subcutaneous tissue and the clavipectoral fascia was encountered and opened. The Neoprobe was again used to scan the axilla and I identified 1 node that was hot and blue, this was carefully grasped and excised using the LigaSure device. The count for the sentinel lymph node 1 was 25,666. The Neoprobe was then used to scan the axilla and no further radio activity was found in the axilla that met the 10% criteria. The cavity was irrigated with saline hemostasis was assured. The clavipectoral fascia was closed with 3-0 vicryl unning suture. Attention was then turned to th e left breast. An elliptical incision encompassing the nipple areolar complex was made and dissection was carried down through the subcutaneous tissue and continued through the thin areolar tissue plane between the subcutaneous tissue with the breast tissue superiorly to the inferior border of the clavicle.? We then continued our dissection medially to the lateral aspect of the sternum, inferiorly to the inframammary fold and laterally to latissimus.? Once this was performed the breast tissue along with the pectoralis fascia was dissected off the pectoralis muscle posteriorly.? The mastectomy specimen was then marked short stitch superior long stitch lateral stitch lateral for orientation.? The specimen was then sent to pathology as a fresh specimen.? Hemostasis was assured.?A 10 [place] flat drain was placed above the pectoralis muscle and secure to the skin using a silk suture. The incision was then closed with interrupted 3-0 Vicryl followed by 4-0 Monocryl in a subcuticular fashion. Dermabond was applied followed by a binder. She was awoken from anesthesia and taken to the recovery in stable condition. All needles, instruments, sponge counts were correct as reported by the operating room staff. Patient tolerated the procedure well with no immediate complications. Estimated Blood Loss 20 Drains Yes Pathology Yes Complications No immediate complications Condition Stable Disposition PACU [facility] Billing Surgery - Charge Forward: Surgery Billing (CPT 95753, [id number] - 59, [id number] - 59, [id number] - 59)
[2025-05-16] MEDS: fentaNYL CITRATE INJ (*CRX) 100 MCG/2 ML VIAL 25 MCG IV PUSH ×4 (13:28→13:47)
--- NOTE | 2025-05-16 14:32 | ADMGEN ---
This patient, Cara Nicholson, was admitted to [facility] Surg Room 303-01. Patient/family oriented to hospital policies and general routines including ID bracelet, bed and alarms, visiting hours, pain management, procedures, bathroom and other care routines, personal items, smoking policy, room service/diet, and visiting hours. Information on how to activate the Rapid Response Team has been discussed. Patient/Family are encouraged to report perceived risks to care and to ask questions if they do not understand what they are told or what they should do.
[2025-05-16] MEDS: EZETIMIBE 10 MG TABLET PO (14:58)
[2025-05-16] MEDS: LOSARTAN POTASSIUM 100 MG TABLET PO (14:58)
[2025-05-16] MEDS: HYDROmorphone HCL INJ (*CRX) 1 MG/ML SYR IV PUSH ×2 (14:58→15:10)
[2025-05-16] MEDS: LACTATED RINGERS 1,000 ML 100 ML IV CONT (15:13)
[2025-05-16] MEDS: DOCUSATE SODIUM 100 MG CAPSULE PO (16:41)
[2025-05-16] MEDS: HYDROcodone/acetaminophen (*CRX) 5-325 MG TABLET 1 TAB PO (16:41)
[2025-05-17] MEDS: HYDROcodone/acetaminophen (*CRX) 5-325 MG TABLET 1 TAB PO (02:45)
[2025-05-17 05:00] VITALS: BP 122/49; PULSE 72; RESP 16; TEMP 36.7; O2SAT 94
[2025-05-17] MEDS: LEVOTHYROXINE SODIUM 88 MCG TABLET PO (06:10)
--- NOTE | 2025-05-17 09:32 | P.DS_ITS ---
DS: Admitting Diagnosis Discharge Date 05/17/2025 Admitting Diagnosis multifocal left breast invasive lobular carcinoma hypertension hyperlipidemia thyroid disease DS: Discharge Diagnosis Discharge Diagnosis (1) Invasive lobular carcinoma of left breast in female: Code(s): C50.912 - Malignant neoplasm of unspecified site of left female breast Status: Acute Plan - Patient is being discharged today to home with plan for follow-up in 1 week for incision and drain check - Follow-up with breast surgery 1 week DS: Summary Hospital Course Hospital Course: patient was a mid after undergoing a left total mastectomy and left sentinel lymph node biopsy on May 16 for a multifocal left breast invasive lobular carcinoma. She did well overnight with no issues. She is tolerating a regular diet and her pain is well controlled on p.o. pain medication. She is ambulating and voiding without any problems. She was deemed ready for discharge on postop day 1. Time spent discussing smoking cessation with patient: 3 to 10 minutes Status at Discharge Functional status at discharge: independent ambulation Overall status at discharge: patient is back to baseline Time Spent with Patient Time attestation: Total time spent providing and/or coordinating discharge services: Time spent: Less than 30 minutes Exam Const: General: comfortable and no acute distress HENMT: Mouth: Yes moist mucous membranes Eyes: General: appearance normal, both eyes and all related structures Neck: Neck: supple Resp: Effort & Inspection: normal respiratory effort GI: GI Palp: Yes Soft to palpation Skin: General skin exam: normal color Other: Left mastectomy incision is closed with no open wounds or drainage noted. Drain output was bloody and 60 cc overnight. No areas of erythema or crepitus noted there is mild ecchymosis on the lateral chest area below the axilla. No fluctuance noted. DS: Data Data Completed and Pending Pending studies at discharge: Pending at discharge 05/16/25 11:21 Surgical [PTH] Routine Surgical [PTH] Routine Labs on day of discharge: Labs from last 24 hours 05/16/25 09:23 Sodium 135 L Potassium 3.4 Chloride 100 Carbon Dioxide 27 Anion Gap 8 BUN 22 H Creatinine 0.76 Estim Creat Clear Calc 39 Estimated GFR > 60 Glucose 105 Calcium 9.2 Discharge Plan Discharge Patient Disposition: Home Discharge Instructions: Lissa Forde MD [facility] [address] [place] [address] Post-operative Discharge Instructions Diet: As tolerated Activity: Avoid overhead movements with the affected arm/side for 2 weeks. You should walk at least 3-4 times daily, but do not exert yourself. Ok to go up and down stairs. Dressing: Wear the compression bandage or compression bra at all times, including at night while sleeping. Ok to remove for shower. Patients with Drain: No showers or baths while drain is in place. Ok for sponge baths. Drain Care: Strip the drain tubing at least once a day, and empty drain. Record the drain output and bring record to your follow up visit. Mastectomy patients WITH Drains ONLY: Return to the office in 1 week for post- op follow up visit. Call the office with any questions or concerns in the meantime. If after hours, please call the magnetometer operator to be connected to the surgeon. If you have an emergency , call 911 or go to the nearest ER. Patient Language: Mauritanian Stand Alone Forms: General Discharge Instructions Discharge Medications: New hydrocodone-acetaminophen 5-325 mg tablet 1 tablet PO Q6H PRN (Reason: pain) Qty: 20 0RF Continued ezetimibe [Zetia] 10 mg tablet 10 mg PO DAILY amlodipine 5 mg tablet 5 mg PO DAILY Patient Comments: QAM levothyroxine 88 mcg tablet 88 mcg PO DAILY Patient Comments: QAM hydrochlorothiazide 25 mg tablet 25 mg PO DAILY Patient Comments: QAM metoprolol succinate 50 mg tablet extended release 24 hr 50 mg PO DAILY Patient Comments: QAM losartan 100 mg tablet 100 mg PO DAILY Patient Comments: QAM acetaminophen [Acetaminophen Extra Strength] 500 mg tablet 1,000 mg PO Q6H PRN (Reason: pain) Held aspirin [Adult Low Dose Aspirin] 81 mg tablet,delayed release (DR/EC) 81 mg PO DAILY Hold Instructions: Resume on 05/23/25. Please hold aspirin until next week, ok to resume at the above date.
[2025-05-17 09:46] VITALS: PULSE 72
[2025-05-17] MEDS: DOCUSATE SODIUM 100 MG CAPSULE PO (09:46)
[2025-05-17] MEDS: LOSARTAN POTASSIUM 100 MG TABLET PO (09:46)
[2025-05-17] MEDS: EZETIMIBE 10 MG TABLET PO (09:46)
[2025-05-17] MEDS: METOPROLOL SUCCINATE EXT REL 50 MG TABCR PO (09:46)
== END 2025-05-17 10:35 | disposition home or self-care (01) ==
LOC: ANHSURGERY 08:26 → ANH3MEDSUR 14:31
PROVIDERS: Anesthesiology; PCP Family Medicine; Visit Provider Surgery
PROC: (CPT 19303; principal; 2025-05-16 10:30)
DX: C50.812 Malignant neoplasm of overlapping sites of left female breast (principal); Z17.411 Hormone receptor positive with human epidermal growth factor receptor 2 negative status
CPT/HCPCS: 19303; 38525; 38900; 36415; 38792; 80048; 88305; 88307; 88342; J0690; A9270; A9520; J1171; J2371; J2704; J3010; J7120; Q9968